=== PATIENT | male | born 1985 | race Hispanic/Latino ===

== ENCOUNTER 2020-10-20 00:12 | Inpatient (IN) | payer SELFPAY ==
[2020-10-20] MEDS ORDERED: AMLODIPINE 5 MG TAB ONE (01:34)
[2020-10-20 02:44] LABS: Basophils % 0.6 % (0-1.3); Lymphocytes % 28.3 % (15.3-44.8); MPV 7.4 fL (7.6-11.3); RBC Red Blood Cell Count 6.63 M/uL (4.33-5.43)
[2020-10-20 02:45] LABS: Protime INR 1.17
[2020-10-20 02:48] LABS: Hematocrit 63.3 % (39.6-49.0)
[2020-10-20 02:58] LABS: ALT/SGPT 57 U/L (12-78); AST/SGOT 26 U/L (15-37); Albumin 4.1 g/dL (3.4-5.0); Alkaline Phosphatase 89 U/L (45-117); BUN Blood Urea Nitrogen 6 mg/dL (7-18); Bicarbonate 28 mmol/L (21-32); Bilirubin Direct 0.3 mg/dL (0-0.2); Bilirubin Total 1.6 mg/dL (0.2-1.0); Glucose Level 99 mg/dL (74-106); Magnesium 2.3 mg/dL (1.8-2.4); Potassium 3.4 mmol/L (3.5-5.1); Sodium Level 140 mmol/L (136-145); Troponin (Emerg Dept Use Only) < 0.02 ng/mL (0.0-0.045)
[2020-10-20 03:03] LABS: NT PRO-BNP < 5 pg/mL (<125)
[2020-10-20] MEDS ORDERED: NA CHLORIDE 0.9% 1,000 ML ONE (03:41)
--- NOTE | 2020-10-20 05:36 | ER ---
Nurse's Notes [facility] Name: Sandra Velázquez Age: 35 yrs Sex: Male : 1985 Arrival Date: 10/20/2020 Time: 00:13 Bed 19 Private MD: Diagnosis: Polycythemia vera;Hyperviscosity Syndrome;Uncontrolled Hypertension Presentation: 10/20 00:24 Chief complaint: Patient states: he was told by his PCP to come to the ED to be bb evaluated for his HTN, back pain, and high blood count from his labs pt has been taking BP medicine x 2 weeks. Coronavirus screen: At this time, the client does not indicate any symptoms associated with coronavirus-19. Ebola Screen: No symptoms or risks identified at this time. Initial Sepsis Screen: Does the patient meet any 2 criteria? No. Patient's initial sepsis screen is negative. Does the patient have a suspected source of infection? No. Patient's initial sepsis screen is negative. Risk Assessment: Do you want to hurt yourself or someone else? Patient reports no desire to harm self or others. Onset of symptoms was October 2020. 00:24 Method Of Arrival: Ambulatory bb 00:24 Acuity: ALEC 2 bb Historical: - Allergies: 00:29 No Known Allergies; bb - Home Meds: 00:29 tramadol 50 mg Oral tab 1 tab every 8 hours [Active]; amlodipine 10 mg tab 1 tab once bb daily [Active]; - PMHx: 00:29 Hypertension; Polycythemia; bb - Immunization history:: Adult Immunizations unknown. - Social history:: Smoking status: Patient reports the use of cigarette tobacco products, smokes one-half pack cigarettes per day. Screenin:00 Abuse screen: Denies threats or abuse. Denies injuries from another. Nutritional wh screening: No deficits noted. Tuberculosis screening: No symptoms or risk factors identified. Fall Risk None identified. Assessment: 00:45 General: Appears in no apparent distress. Behavior is calm, cooperative, appropriate wh for age. Pain: Complains of pain in headache and abdominal pain. Neuro: Level of Consciousness is awake, alert, obeys commands, Oriented to person, place, time, situation, Appropriate for age. Neuro: Reports blurred vision headache. Cardiovascular: Heart tones S1 S2. Respiratory: Airway is patent Respiratory effort is even, unlabored, Respiratory pattern is regular, symmetrical, Breath sounds are clear bilaterally. GI: Abdomen is flat, non-distended, Bowel sounds present X 4 quads. Abd is soft and non tender X 4 quads. Reports upper abdominal pain. : No signs and/or symptoms were reported regarding the genitourinary system. EENT: Reports blurred vision. Derm: Skin is intact, is healthy with good turgor, Skin is pink, warm \T\ dry. normal. Musculoskeletal: Circulation, motion, and sensation intact. 01:55 Reassessment: Patient appears in no apparent distress at this time. No changes from previously documented assessment. Patient and/or family updated on plan of care and expected duration. Pain level reassessed. Patient is alert, oriented x 3, equal unlabored respirations, skin warm/dry/pink. 05:22 Reassessment: Patient appears in no apparent distress at this time. Patient and/or family updated on plan of care and expected duration. Pain level reassessed. Patient is alert, oriented x 3, equal unlabored respirations, skin warm/dry/pink. Provider at bedside explaining POC need for admit. 07:00 Reassessment: Patient appears in no apparent distress at this time. No changes from tw2 previously documented assessment. Patient and/or family updated on plan of care and expected duration. Pain level reassessed. Patient is alert, oriented x 3, equal unlabored respirations, skin warm/dry/pink. 08:00 Reassessment: Patient appears in no apparent distress at this time. No changes from tw2 previously documented assessment. Patient and/or family updated on plan of care and expected duration. Pain level reassessed. Patient is alert, oriented x 3, equal unlabored respirations, skin warm/dry/pink. 09:00 Reassessment: Patient appears in no apparent distress at this time. No changes from tw2 previously documented assessment. Patient and/or family updated on plan of care and expected duration. Pain level reassessed. Patient is alert, oriented x 3, equal unlabored respirations, skin warm/dry/pink. 09:44 Reassessment: Patient appears in no apparent distress at this time. No changes from tw2 previously documented assessment. Patient and/or family updated on plan of care and expected duration. Pain level reassessed. Patient is alert, oriented x 3, equal unlabored respirations, skin warm/dry/pink. Vital Signs: 00:24 BP 171 / 125; Pulse 97; Resp 16 S; Temp 98.3(O); Pulse Ox 99% on R/A; Weight 65 kg (R); bb Height 5 ft. 4 in. (162.56 cm) (R); Pain 4/10; 02:12 BP 158 / 115; Pulse 77; Resp 18; Pulse Ox 95% on R/A; wh 04:00 BP 165 / 110; Pulse 61; Resp 18; Pulse Ox 98% on R/A; wh 05:15 BP 174 / 119; Pulse 72; Resp 18; Pulse Ox 96% on R/A; wh 00:24 Body Mass Index 24.60 (65.00 kg, 162.56 cm) bb ED Course: 00:13 Patient arrived in ED. bp1 00:28 Triage completed. bb 00:29 Arm band placed on Patient placed in an exam room, on a stretcher, on pulse oximetry. bb 00:33 Clyde Dalton MD is Attending Physician. 7 01:00 Patient has correct armband on for positive identification. Placed in gown. Bed in low wh position. Call light in reach. Side rails up X 1. monitor tech on. Pulse ox on. NIBP on. 01:01 Tavares Rivera, ЕЛЕНА is Primary Nurse. 01:11 XRAY Chest (1 view) In Process Unspecified. EDMS 01:15 Inserted saline lock: 20 gauge in right antecubital area, using aseptic technique. Blood collected. 03:53 CT Head Brain wo Cont In Process Unspecified. EDMS 03:53 CT Abd/Pelvis - Without Contrast In Process Unspecified. EDMS 05:33 Shama Richardson MD is Hospitalizing Provider. 7 07:15 Primary Nurse role handed off by Tavares Rivera, RN tw2 07:15 Rachele Lopez, ЕЛЕНА is Primary Nurse. tw2 Administered Medications: 01:20 Drug: amLODIPine 5 mg Route: PO; wh 04:16 Follow up: Response: No adverse reaction; Blood pressure is lowered 03:25 Drug: NS 0.9% 1000 ml Route: IV; Rate: 1000 ml; Site: right antecubital; Outcome: 05:34 Decision to Hospitalize by Provider. mh7 10:58 Patient left the ED. 2 Signatures: Dispatcher [employer] Rosa Elena Rogers RN RN bb Wise, Tara, RN RN 2 Tavares Rivera RN RN wh Pania[place], Brittany bp1 Holmes, Maurice, MD MD 7
--- NOTE | 2020-10-20 05:36 | EDPHYS ---
Physician Documentation [facility] Name: Sandra Velázquez Age: 35 yrs Sex: Male : 1985 Arrival Date: 10/20/2020 Time: 00:13 Bed 19 Private MD: ED Physician Clyde Dalton HPI: 10/20 01:06 This 35 yrs old Male presents to ER via Ambulatory with complaints of mh7 Abdominal Pain, Headache, Blurred Vision, Vision Problem. 01:07 The patient has elevated blood pressure and discovered this at a physician's office, [facility] and sent to the emergency department for evaluation. Onset: The symptoms/episode began/occurred 1 week(s) ago. Modifying factors: The symptoms are aggravated by nothing, The symptoms are alleviated by nothing. Associated signs and symptoms: Pertinent positives: dizziness, headache, visual changes, Pertinent negatives: chest pain, dyspnea, nausea, vomiting, weakness. Severity of symptoms: At its worst the blood pressure was moderate, yesterday, in the emergency department the blood pressure is unchanged. Historical: - Allergies: 00:29 No Known Allergies; bb - Home Meds: 00:29 tramadol 50 mg Oral tab 1 tab every 8 hours [Active]; amlodipine 10 mg tab 1 tab once bb daily [Active]; - PMHx: 00:29 Hypertension; Polycythemia; bb - Immunization history:: Adult Immunizations unknown. - Social history:: Smoking status: Patient reports the use of cigarette tobacco products, smokes one-half pack cigarettes per day. ROS: 01:07 Constitutional: Negative for fever, chills, and weight loss, Eyes: Negative for injury, mh7 pain, redness, and discharge, ENT: Negative for injury, pain, and discharge, Neck: Negative for injury, pain, and swelling, Cardiovascular: Negative for chest pain, palpitations, and edema, Respiratory: Negative for shortness of breath, cough, wheezing, and pleuritic chest pain. 01:07 Abdomen/GI: Positive for abdominal pain, flank pain for a few weeks. 01:21 : Negative for injury, bleeding, discharge, and swelling, MS/Extremity: Negative for mh7 injury and deformity, Skin: Negative for injury, rash, and discoloration, Psych: Negative for depression, anxiety, suicide ideation, homicidal ideation, and hallucinations, Allergy/Immunology: Negative for hives, rash, and allergies, Endocrine: Negative for neck swelling, polydipsia, polyuria, polyphagia, and marked weight changes, Hematologic/Lymphatic: Negative for swollen nodes, abnormal bleeding, and unusual bruising. Exam: 01:21 Constitutional: This is a well developed, well nourished patient who is awake, alert, mh7 and in no acute distress. Head/Face: Normocephalic, atraumatic. Eyes: Pupils equal round and reactive to light, extra-ocular motions intact. Lids and lashes normal. Conjunctiva and sclera are non-icteric and not injected. Cornea within normal limits. Periorbital areas with no swelling, redness, or edema. Neck: Trachea midline, no thyromegaly or masses palpated, and no cervical lymphadenopathy. Supple, full range of motion without nuchal rigidity, or vertebral point tenderness. No Meningismus. Chest/axilla: Normal chest wall appearance and motion. Nontender with no deformity. No lesions are appreciated. Cardiovascular: Regular rate and rhythm with a normal S1 and S2. No gallops, murmurs, or rubs. Normal PMI, no JVD. No pulse deficits. Respiratory: Lungs have equal breath sounds bilaterally, clear to auscultation and percussion. No rales, rhonchi or wheezes noted. No increased work of breathing, no retractions or nasal flaring. 01:21 Back: No spinal tenderness. No costovertebral tenderness. Full range of motion. Skin: Warm, dry with normal turgor. Normal color with no rashes, no lesions, and no evidence of cellulitis. MS/ Extremity: Pulses equal, no cyanosis. Neurovascular intact. Full, normal range of motion. Neuro: Awake and alert, GCS 15, oriented to person, place, time, and situation. Cranial nerves II-XII grossly intact. Motor strength 5/5 in all extremities. Sensory grossly intact. Cerebellar exam normal. Normal gait. Psych: Awake, alert, with orientation to person, place and time. Behavior, mood, and affect are within normal limits. 01:21 Abdomen/GI: Inspection: abdomen appears normal, Bowel sounds: normal, in all quadrants, Palpation: moderate abdominal tenderness, in the right upper quadrant, mass, is not appreciated, rebound tenderness, is not appreciated, voluntary guarding, is not appreciated, involuntary guarding, is not appreciated, no appreciated organomegaly, Rectal exam: the exam is deferred, because of patient request, Indicators: McBurney's point is not tender, Parsons's sign is negative, Rovsing's sign is negative, Obturator sign is negative, Psoas sign is negative, Liver: no appreciated palpable abnormalities, Hernia: not appreciated. Vital Signs: 00:24 BP 171 / 125; Pulse 97; Resp 16 S; Temp 98.3(O); Pulse Ox 99% on R/A; Weight 65 kg (R); bb Height 5 ft. 4 in. (162.56 cm) (R); Pain 4/10; 02:12 BP 158 / 115; Pulse 77; Resp 18; Pulse Ox 95% on R/A; wh 04:00 BP 165 / 110; Pulse 61; Resp 18; Pulse Ox 98% on R/A; wh 05:15 BP 174 / 119; Pulse 72; Resp 18; Pulse Ox 96% on R/A; wh 00:24 Body Mass Index 24.60 (65.00 kg, 162.56 cm) bb MDM: 05:32 Differential diagnosis: hypertensive crisis, Malignant HTN, intracerebral hemorrhage. [facility] Data reviewed: vital signs, nurses notes, lab test result(s), cardiac enzymes, CBC, electrolytes, urinalysis, EKG, radiologic studies, CT scan, plain films. Data interpreted: Pulse oximetry: on room air is 96 %. Interpretation: normal. Counseling: I had a detailed discussion with the patient and/or guardian regarding: the historical points, exam findings, and any diagnostic results supporting the discharge/admit diagnosis, the presence of at least one elevated blood pressure reading (>120/80) during this emergency department visit, lab results, radiology results, the need for further work-up and treatment in the hospital. Response to treatment: the patient's symptoms have mildly improved after treatment. 05:34 Patient medically screened. [facility] 10/20 00:47 Order name: Basic Metabolic Panel [facility] 10/20 00:47 Order name: CBC with Diff [facility] 10/20 00:47 Order name: LFT's [facility] 10/21 99:47 Order name: Magnesium [facility] 10/21 99:47 Order name: NT PRO-BNP [facility] 10/21 99:47 Order name: PT-INR; Complete Time: 03:14 [facility] 10/20 00:47 Order name: Troponin (emerg Dept Use Only); Complete Time: 03:14 7 10/20 00:47 Order name: XRAY Chest (1 view) [facility] 10/20 00:47 Order name: Basic Metabolic Panel; Complete Time: 03:14 EDMS 10/20 00:47 Order name: CBC with Automated Diff; Complete Time: 03:14 MS 10/20 00:47 Order name: Liver (Hepatic) Function; Complete Time: 03:14 EDMS 10/20 00:47 Order name: Magnesium; Complete Time: 03:14 EDMS 10/20 00:47 Order name: NT PRO-BNP; Complete Time: 03:14 EDMS 10/20 03:22 Order name: CT Head Brain wo Cont [facility] 10/20 00:47 Order name: EKG; Complete Time: 00:47 [facility] 10/20 00:47 Order name: Cardiac monitoring; Complete Time: 01:20 [facility] 10/20 00:47 Order name: EKG - Nurse/Tech; Complete Time: 01:20 [facility] 10/20 00:47 Order name: IV Saline Lock; Complete Time: 01:21 [facility] 10/20 00:47 Order name: Labs collected and sent; Complete Time: 01:20 [facility] 10/20 00:47 Order name: O2 Per Protocol; Complete Time: 01:20 [facility] 10/20 00:47 Order name: O2 Sat Monitoring; Complete Time: 01:20 [facility] 10/20 01:31 Order name: Labs - recollect needed; Complete Time: 01:53 [facility] 10/20 03:22 Order name: CT Abd/Pelvis - Without Contrast [facility] Administered Medications: 01:20 Drug: amLODIPine 5 mg Route: PO; 04:16 Follow up: Response: No adverse reaction; Blood pressure is lowered 03:25 Drug: NS 0.9% 1000 ml Route: IV; Rate: 1000 ml; Site: right antecubital; Disposition: 10/20/20 05:34 Hospitalization ordered by Shama Richardson for Inpatient Admission. Preliminary diagnosis are Polycythemia vera, Hyperviscosity Syndrome, Uncontrolled Hypertension. - Bed requested for Telemetry/MedSurg (Inpatient). - Status is Inpatient Admission. tw2 - Condition is Stable. - Problem is new. - Symptoms have improved. Signatures: Dispatcher [employer] EDMS Gay Calvin bd Serena Tripathi, RN RN dm5 Rosa Elena Stewart, RN RN Rachele Lopez, RN RN tw2 Tavares Rivera, RN RN Jennifer Killian 2 Clyde Dalton MD MD 7 Corrections: (The following items were deleted from the chart) 08:15 05:34 Hospitalization Ordered by Shama Richardson MD for Inpatient Admission. Preliminary dm5 diagnosis is Polycythemia vera; Hyperviscosity Syndrome; Uncontrolled Hypertension. Bed requested for Telemetry/MedSurg (Inpatient). Status is Inpatient Admission. Condition is Stable. Problem is new. Symptoms have improved. 7 09:13 08:15 10/20/2020 05:34 Hospitalization Ordered by Shama Richardson MD for Inpatient bd Admission. Preliminary diagnosis is Polycythemia vera; Hyperviscosity Syndrome; Uncontrolled Hypertension. Bed requested for [facility] ER HOLD. Status is Inpatient Admission. Condition is Stable. Problem is new. Symptoms have improved. dm5 10:58 09:13 10/20/2020 05:34 Hospitalization Ordered by Shama Richardson MD for Inpatient tw2 Admission. Preliminary diagnosis is Polycythemia vera; Hyperviscosity Syndrome; Uncontrolled Hypertension. Bed requested for Telemetry/MedSurg (Inpatient). Status is Inpatient Admission. Condition is Stable. Problem is new. Symptoms have improved. bd
--- NOTE | 2020-10-20 05:42 | P.HP ---
Certification for Inpatient Patient admitted to: Inpatient With expected LOS: >2 Midnights Patient will require the following post-hospital care: None Practitioner: I am a practitioner with admitting privileges, knowledge of patient current condition, hospital course, and medical plan of care. Services: Services provided to patient in accordance with Admission requirements found in Title 42 Section 412.3 of the Code of Federal Regulations <Jian Castro - Last Filed: 10/20/20 06:05> Patient History Date of Service: 10/20/20 Primary Care Provider: Dr. Macario Reason for admission: polycythemia vera requiring phebotomy, HTN History of Present Illness: Mr. Velázquez is a 35 yo M with polycythemia vera (has received phlebotomy before) and HTN sent here today by PCP for episode of double vision, dizziness, and headache, Hgb/Hct of 20.9/63.3 and one month of intermittent right flank pain. He reports chills, fatigue, and malaise. Denies hemoptysis, hematochezia, pruritus. K 3.4. Tbili 1.6, D bili 0.3. Normal head CT. CXR showed left basilar atelectasis. CT showed miled left hydronephrosis with no evidence of stone and mild cardiomegaly with mild atherosclerosis. Home medications list reviewed: Yes - Past Medical/Surgical History Diabetic: No -: polycythemia vera -: hypertension Past Surgical History: Patient denies surgical history - Family History Father -: Heart disease - Social History Smoking Status: Light Tobacco smoker (1-9 cigarettes/day) Counseled patient to stop smoking for: less than 10 minutes Smoking therapy provided: Yes Patient receptive to therapy: No Alcohol use: Yes CD- Drugs: No Caffeine use: Yes Place of Residence: Home <Jian Castro - Last Filed: 10/20/20 06:05> Date of Service: 10/21/20 <Shama Richardson - Last Filed: 10/21/20 08:53> Review of Systems General: Chills, Malaise, As per HPI Eyes: Vision Change, As per HPI ENT: Unremarkable Respiratory: Unremarkable Cardiovascular: Light Headedness Gastrointestinal: Unremarkable Genitourinary: Unremarkable Musculoskeletal: Unremarkable Integumentary: Jaundice Neurological: Unremarkable Lymphatics: Unremarkable <Jian Castro - Last Filed: 10/20/20 06:05> Physical Examination - Vital Signs Temperature: 98.3 F Blood Pressure: 171/125 Pulse: 97 Respirations: 16 Pulse Ox (%): 99 - Physical Exam General: Alert, In no apparent distress, Oriented x3, Cooperative HEENT: Atraumatic, Normocephalic, PERRLA, Mucous membr. moist/pink, EOMI, Scleral icterus Neck: Supple, 2+ carotid pulse no bruit, JVD not distended, No Thyromegaly, No LAD Respiratory: Clear to auscultation bilaterally, Normal air movement Cardiovascular: No edema, Normal pulses, Regular rate/rhythm, Normal S1 S2, No gallops, No rubs, No murmurs Capillary refill: <2 Seconds Gastrointestinal: Normal bowel sounds, Soft and benign, Non-distended, No ascites, No tenderness, No masses, No rebound, No guarding Musculoskeletal: No clubbing, No swelling, No contractures, No erythema, No tenderness, No warmth Integumentary: No rashes, No breakdown, No significant lesion, No tenderness/swelling, No warmth, No cyanosis, Erythema Neurological: Normal speech, Normal strength at 5/5 x4 extr, Normal tone, Sensation intact, Cranial nerves 3-12 intact, Normal affect Lymphatics: No axilla or inguinal lymphadenopathy - Studies Laboratory Data (last 24 hrs) 10/20/20 02:30: PT 13.5 H, INR 1.17 10/20/20 02:30: WBC 6.90, Hgb 20.9 H, Hct 63.3 H*, Plt Count 213 10/20/20 02:30: Sodium 140, Potassium 3.4 L, BUN 6 L, Creatinine 0.83, Glucose 99, Magnesium 2.3, Total Bilirubin 1.6 H, AST 26, ALT 57, Alkaline Phosphatase 89 <Jian Castro - Last Filed: 10/20/20 06:05> Assessment and Plan - Problems (Diagnosis) (1) Polycythemia vera Current Visit: Yes Status: Chronic Plan: phlebotomy of 500ml replaced with NS, aspirin 81 mg PO, control of HTN. Lipid panel, A1c pending. (2) Hypertension Current Visit: Yes Status: Chronic Plan: continue with amlodipine 10mg daily. hydralazine 10mg IV PRN. will continue to monitor. Qualifiers: Hypertension type: essential hypertension Qualified Code(s): I10 - E ssential (primary) hypertension (3) Tobacco abuse Current Visit: Yes Status: Chronic Plan: nicotine patch. continue to monitor. (4) Right flank pain Current Visit: Yes Status: Chronic Plan: CT scan without correlation. Currently asymptomatic. Prescribed tramadol 50mg by PCP, will continue to monitor. Discharge Plan: Home Plan to discharge in: 48 Hours - Advance Directives Does patient have a Living Will: No Does patient have a Durable POA for Healthcare: No - Code Status/Comfort Care Code Status Assessed: Yes (full code) Critical Care: No Time Spent Managing Pts Care (In Minutes): 70 <Jian Castro - Last Filed: 10/20/20 06:05> Date of Service: 10/20/20 Agree with plan of care as mentioned above. Once patient's phlebotomized patient should be able to go home with outpatient follow with Hematology. <Shama Richardson - Last Filed: 10/21/20 08:53>
[2020-10-20 11:50] VITALS: BMI 24.5
[2020-10-20] MEDS ORDERED: ONDANSETRON 4 MG/2 ML VIAL IV PRN (12:03)
[2020-10-20] MEDS ORDERED: HYDRALAZINE HCL 20 MG/ML VIAL IV PRN (12:03)
[2020-10-20] MEDS: ASPIRIN EC 81 MG TAB PO SCH (12:03)
[2020-10-20] MEDS: NICOTINE 7 MG/PAT TD SCH (12:03)
[2020-10-20] MEDS ORDERED: ACETAMINOPHEN 500 MG TAB PO PRN (12:03)
--- NOTE | 2020-10-20 12:18 | RAD REPORT ---
EXAM DESCRIPTION: CT Head Without Intravenous Contrast CLINICAL HISTORY: The patient is 35 years old and is Male; DIZZINESS TECHNIQUE: Axial computed tomography images of the head/brain without intravenous contrast. Sagitt al and coronal reformatted images were created and reviewed. This CT exam was performed using one o r more of the following dose reduction techniques: automated exposure control, adjustment of the mA and/or kV according to patient size, and/or use of iterative reconstruction technique. COMPARISON: No relevant prior studies available. FINDINGS: Brain: Unremarkable. No hemorrhage. No significant white matter disease. No edema. Ventricles: Unremarkable. No ventriculomegaly. Bones/joints: Unremarkable. No acute fracture. Soft tissues: Unremarkable. Sinuses: Unremarkable as visualized. Mastoid air cells: Unremarkable as visualized. No mastoid effusion. IMPRESSION: Normal head/brain CT. Electronically signed by: Nahum Brandt MD 10/20/2020 4:01 AM LETTER OF CREDIT DOCUMENT EXAMINER Due to temporary technical issues with the PACS/Fluency reporting system, reports are being signed by the in house radiologist without review as a courtesy to ensure prompt reporting. The interpreting r adiologist is fully responsible for the content of the report.
--- NOTE | 2020-10-20 12:19 | RAD REPORT ---
EXAM DESCRIPTION: CT Abdomen and Pelvis COMPARISON: None. CLINICAL HISTORY: [facility] MAIN Abd pain;Flank pain TECHNIQUE: CT of the abdomen and pelvis was acquired without IV contrast material. Coronal and sagit gem reconstructions were obtained. Automated exposure control was utilized on this examination as a dose lowering technique. FINDINGS: Lung bases: Mild cardiomegaly. *Evaluation of solid organs is limited due to lack of IV contrast. Liver: Normal. Gallbladder and biliary: Normal gallbladder. Unremarkable biliary tree. Pancreas: Normal. Spleen: Normal. Adrenal glands: Normal adrenal glands. Kidneys: Mild left hydronephrosis. Normal right kidney. No obstructing calculi. Stomach and Small Bowel: The stomach and small bowel are normal. Urinary bladder: Distended. Prostate/Male Urogenital: A left hydrocele is noted. Otherwise, normal. Colon and Appendix: The colon is unremarkable. No evidence of appendicitis. Retroperitoneum and lymph nodes: Normal. Vascular: Mild calcified atherosclerosis. Peritoneal cavity: No ascites or free air. Musculoskeletal and soft tissues: Soft tissues are unremarkable. No aggressive bone lesions. No com pression fracture. IMPRESSION: 1. Mild left hydronephrosis without evidence of obstructing stone. No other acute intra- abdominal abnormalities. 2. Mild cardiomegaly with mild atherosclerosis. Electronically signed by: Siva Thomson MD 10/20/2020 4:04 AM DITCHER OPERATOR Due to temporary technical issues with the PACS/Fluency reporting system, reports are being signed by the in house radiologist without review as a courtesy to ensure prompt reporting. The interpreting r adiologist is fully responsible for the content of the report.
--- NOTE | 2020-10-20 12:20 | RAD REPORT ---
EXAM DESCRIPTION: XR Chest, 1 View CLINICAL HISTORY: The patient is 35 years old and is Male; hypertension TECHNIQUE: Frontal view of the chest. COMPARISON: No relevant prior studies available. FINDINGS: LUNGS: There are significantly low lung volumes. Suggestion of minimal left basilar opac ity is noted. PLEURAL SPACE: Unremarkable. No pneumothorax. HEART: Unremarkable. No cardiomegaly. MEDIASTINUM: Unremarkable. BONES/JOINTS: Unremarkable. UPPER ABDOMEN: Gaseous distention of the visualized bowel is noted. IMPRESSION: Findings suggestive of left basilar atelectasis. Electronically signed by: Olivia Alfaro MD 10/20/2020 1:20 AM ENERGY SCHEDULER Due to temporary technical issues with the PACS/Fluency reporting system, reports are being signed by the in house radiologist without review as a courtesy to ensure prompt reporting. The interpreting r adiologist is fully responsible for the content of the report.
[2020-10-20 21:08] LABS: Urine Appearance CLEAR; Urine Blood NEGATIVE (NEG); Urine Color DK YELLOW; Urine Glucose NEGATIVE (NEG); Urine Protein 1+ (NEG); Urine pH 7.5 (5.0-7.0)
[2020-10-20 21:13] LABS: Urine Bilirubin NEGATIVE (NEG); Urine Microscopic Reflex ORDER UMIC
[2020-10-20 21:19] LABS: Urine Bacteria <20 /HPF (NONE SEEN); Urine Mucus 2+ /HPF (NONE SEEN); Urine RBC <5 /HPF (NONE SEEN); Urine Urothelial Cells <5 /HPF (NONE SEEN)
--- NOTE | 2020-10-21 05:15 | EKG ---
Test Date: 2020-10-20 Test Time: 01:05:58 Clinical Advisor: MEASUREMENT RESULTS: Intervals: Rate: 70 HI: 142 QRSD: 88 QT: 372 QTc: 401 [place]: P: 67 HI: 142 QRS: 24 T: 50 INTERPRETIVE STATEMENTS: Normal sinus rhythm Normal ECG No previous ECG available for comparison Electronically Signed On 10-21-20 05:11:40 JIGGER MACHINE OPERATOR by Sebas Crockett
[2020-10-21 06:48] LABS: Absolute Lymphocytes (CBC) 2.3 K/uL (0.7-4.9); Basophils % 0.5 % (0-1.3); Lymphocytes % 29.9 % (15.3-44.8); MPV 7.4 fL (7.6-11.3); RBC Red Blood Cell Count 6.86 M/uL (4.33-5.43)
[2020-10-21 07:05] LABS: Potassium 4.1 mmol/L (3.5-5.1)
[2020-10-21 07:28] LABS: Hematocrit 65.2 % (39.6-49.0)
[2020-10-21 08:07] LABS: Blood Morphology Comment NOT SEEN (NOT SEEN); Platelet Estimate ADEQ; Platelets, Giant PRESENT
--- NOTE | 2020-10-21 08:55 | P.DS ---
Discharge Date: 10/21/20 Primary Care Provider: Dr. Macario Disposition: ROUTINE DISCHARGE Discharge Condition: GOOD Reason for Admission: polycythemia vera requiring phebotomy, HTN Brief History of Present Illness: Mr. Velázquez is a 35 yo M with polycythemia vera (has received phlebotomy before) and HTN sent here today by PCP for episode of double vision, dizziness, and headache, Hgb/Hct of 20.9/63.3 and one month of intermittent right flank pain. He reports chills, fatigue, and malaise. Denies hemoptysis, hematochezia, pruritus. K 3.4. Tbili 1.6, D bili 0.3. Normal head CT. CXR showed left basilar atelectasis. CT showed miled left hydronephrosis with no evidence of stone and mild cardiomegaly with mild atherosclerosis. Hospital Course: Patient denies having any other complaints. He was surprised that his blood count was so elevated. We went ahead and get phlebotomy and will repeat his hemoglobin. Anticipate him being able to go home after this is done. He will need to follow with Hematology. [facility]her Vital Signs/Physical Exam: Temp Pulse Resp BP Pulse Ox 98.3 F 75 16 149/100 H 97 10/21/20 04:00 10/21/20 04:00 10/21/20 04:00 10/21/20 04:00 10/21/20 04:00 General: Alert, In no apparent distress, Oriented x3 Laboratory Data at Discharge: WBC 7.80 K/uL (4.3-10.9) 10/21/20 06:19 Hgb 21.9 g/dL (13.6-17.9) H 10/21/20 06:19 Hct 65.2 % (39.6-49.0) H* 10/21/20 06:19 Plt Count 216 K/uL (152-406) 10/21/20 06:19 PT 13.5 SECONDS (9.5-12.5) H 10/20/20 02:30 INR 1.17 10/20/20 02:30 Sodium 139 mmol/L (136-145) 10/21/20 06:19 Potassium 4.1 mmol/L (3.5-5.1) 10/21/20 06:19 BUN 9 mg/dL (7-18) 10/21/20 06:19 Creatinine 1.12 mg/dL (0.55-1.3) 10/21/20 06:19 Glucose 100 mg/dL (74-106) 10/21/20 06:19 Magnesium 2.3 mg/dL (1.8-2.4) 10/20/20 02:30 Total Bilirubin 1.6 mg/dL (0.2-1.0) H 10/20/20 02:30 AST 26 U/L (15-37) 10/20/20 02:30 ALT 57 U/L (12-78) 10/20/20 02:30 Alkaline Phosphatase 89 U/L (45-117) 10/20/20 02:30 Triglycerides 256 mg/dL (<150) H 10/21/20 06:19 Cholesterol 169 mg/dL (<200) 10/21/20 06:19 HDL Cholesterol 32 mg/dL (40-60) L 10/21/20 06:19 Cholesterol/HDL Ratio 5.28 10/21/20 06:19 Home Medications: Amlodipine [Norvasc] 5 mg PO DAILY 10/20/20 Tramadol HCl [Ultram] 50 mg PO Q8HR PRN 10/20/20 Physician Discharge Instructions: OK TO DC IV AND DC HOME FOLLOW-UP WITH PRIMARY CARE PROVIDER IN 1-2 WEEKS FOLLOW-UP WITH Hematology as IN 1-2 WEEKS RETURN TO THE ER IF symptoms worsen CALL or TEXT DR. MORALES AT [phone] IF ANY QUESTIONS REGARDING HOSPITAL STAY. PLEASE CALL THE FLOOR AT [phone] IF ANY MEDICATION OR NURSING QUESTIONS. Followup: NONE,NONE [Primary Care Provider] - Time spent managing pt's care (in minutes): 35
[2020-10-21] MEDS: NICOTINE 7 MG/PAT TD SCH (09:00)
[2020-10-21] MEDS ORDERED: NA CHLORIDE 0.9% 500 ML ONE (09:06)
[2020-10-21] MEDS: ASPIRIN EC 81 MG TAB PO SCH (09:22)
[2020-10-21 09:35] VITALS: O2SAT 96
[2020-10-21 11:48] LABS: Hematocrit 60.7 % (39.6-49.0)
[2020-10-21 12:48] VITALS: BP 137/94; TEMP 96.9
== END 2020-10-21 13:45 | disposition home or self-care (01) | DRG 841 ==
LOC: ER 00:12 → ERHOLD 05:49 → 2ND 09:54
PROVIDERS: ADMIT Hospitalist; ATTEND Hospitalist
DX: D45 Polycythemia vera (principal); N13.30 Unspecified hydronephrosis; I10 Essential (primary) hypertension; F17.210 Nicotine dependence, cigarettes, uncomplicated; Z79.899 Other long term (current) drug therapy; Z20.822 Contact with and (suspected) exposure to COVID-19
CPT/HCPCS: 36415; 70450; 71045; 74176; 80048; 80061; 80076; 81003; 81015; 83036; 83735; 83880; 84484; 85014; 85018; 85025; 85610; 93005; 99195; 99284; J7030; J7040